=== PATIENT | male | born 1990 | race African-American/Black ===

== ENCOUNTER 2018-02-06 08:33 | Emergency (ER) | payer OTHER ==
[~2018-02-06] VITALS: Ht 167.6 cm; Wt 94.1 kg
[2018-02-06 09:01] VITALS: Ht 167.6 cm; Wt 94.1 kg
[2018-02-06 09:22] LABS: BASOPHILS 0.2 % (0-2); EOSINOPHILS 0.3 % (0-7); HEMATOCRIT 46.3 % (42.0-54.0); HEMOGLOBIN 15.8 g/dL (13.5-17.5); IMMATURE GRANULOCYTES 0.3 % (0-5); LYMPHOCYTES 11.6 % (15-50); MCH 31.9 pg (26.0-34.0); MCHC 34.1 g/dL (31.0-37.0); MCV 93.3 fL (80.0-100.0); MEAN PLATELET VOLUME 11.8 fL (7.4-10.4); MONOCYTES 6.3 % (2-11); NEUTROPHILS 81.3 % (40-80); PLATELET COUNT 209 10x3/uL (130-400); RBC 4.96 10x6/uL (4.20-6.10); RDW 12.9 % (11.5-14.5)
[2018-02-06 09:44] LABS: ALBUMIN 3.7 g/dL (3.4-5.0); ALKALINE PHOSPHATASE 68 U/L (46-116); ALT (SGPT) 29 U/L (10-68); BILIRUBIN - TOTAL 0.85 mg/dL (0.2-1.3); CALC OSMOLALITY 273 mosm/kg (275-300); CALCIUM 10.8 mg/dL (8.5-10.1); CARBON DIOXIDE 26.5 mmol/L (21.0-32.0); CHLORIDE - SERUM 105 mmol/L (98-107); CREATININE - SERUM 1.2 mg/dL (0.6-1.3); GLUCOSE 105 mg/dL (74-106); POTASSIUM - SERUM 4.5 mmol/L (3.5-5.1); PROTEIN - SERUM 6.6 g/dL (6.4-8.2); SODIUM 137 mmol/L (136-145); UREA NITROGEN 13 mg/dL (7-18); eGFR NON AFRICAN AMERICAN 77 mL/min (90-120)
[2018-02-06] MEDS ORDERED: VIBRAMYCIN 100100 MG PO (10:53)
[2018-02-06] MEDS ORDERED: GUAIFENESI100 MG/5 M PO (10:53)
[2018-02-06 11:30] VITALS: BP 122/84
== END 2018-02-06 11:30 | disposition home or self-care (01) ==
LOC: D.ER 08:33
PROVIDERS: Emergency Medicine
DX: J06.9 Acute upper respiratory infection, unspecified (principal); L25.9 Unspecified contact dermatitis, unspecified cause; F17.200 Nicotine dependence, unspecified, uncomplicated

== ENCOUNTER 2018-10-21 05:49 | Day surgery (SDC) | payer OTHER ==
[~2018-10-21 05:49] MED LIST: GUAIFENESI100 MG/5 M PO; VIBRAMYCIN 100100 MG PO
[2018-10-21 05:52] VITALS: BMI 26.7
--- NOTE | 2018-10-21 06:50 | NUR ---
DR DOWNEY HERE- CONSENTS FOR SURGERY SIGNED. PT STATES THE LAST TIME HE ATE WAS AT 2129. 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
[2018-10-21 06:58] LABS: BASOPHILS 0.3 % (0-2); EOSINOPHILS 0.6 % (0-7); HEMATOCRIT 43.9 % (42.0-54.0); HEMOGLOBIN 15.3 g/dL (13.5-17.5); IMMATURE GRANULOCYTES 0.2 % (0-5); LYMPHOCYTES 16.1 % (15-50); MCH 32.4 pg (26.0-34.0); MCHC 34.9 g/dL (31.0-37.0); MONOCYTES 7.6 % (2-11); NEUTROPHILS 75.2 % (40-80); RBC 4.72 10x6/uL (4.20-6.10); RDW 12.4 % (11.5-14.5); WBC 10.7 10x3/uL (4.8-10.8)
[2018-10-21 06:59] LABS: PLATELET COUNT 303 10x3/uL (130-400)
[2018-10-21 07:09] VITALS: BP 144/94
--- NOTE | 2018-10-21 07:20 | NUR ---
PT GIVEN REGLAN 10MG, PEPCID 20 AND ROBINUL 1MG PO FOR PRE-OPS. ANCEF 2 GRAMS IVPB BEGAN. HAS ADAPTIC AND 4X4 IN PLACE TO WOUND. OR HERE TO TAKE PATIENT. BELONGINGS BAGGED AND LABELED. PT'S FAMILY'S NUMBER GIVEN TO OR NURSE.
[2018-10-21 07:28] LABS: BILIRUBIN - TOTAL 0.97 mg/dL (0.2-1.3); CALCIUM 11.8 mg/dL (8.5-10.1); CARBON DIOXIDE 21.5 mmol/L (21.0-32.0); CREATININE - SERUM 1.3 mg/dL (0.6-1.3); POTASSIUM - SERUM 3.5 mmol/L (3.5-5.1); PROTEIN - SERUM 7.1 g/dL (6.4-8.2)
[2018-10-21] MEDS ORDERED: SULFAMETHOXAZOL1 TA3 PO (09:03)
[2018-10-21] MEDS ORDERED: PERCOCET 5-3251 TAB PO (09:03)
[2018-10-21 09:38] VITALS: BP 122/82
[2018-10-21 09:53] VITALS: BP 128/67
--- NOTE | 2018-10-21 09:53 | NUR ---
RECIEVED PT TO ROOM 2204 FROM RECOVERY. PT RESTING WITH EYES CLOSED. EASILY AWAKENS WITH NAME CALLED. RESP EVEN AND UNLABORED. OXYGEN SAT 100%. DRESSING TO LEFT HAND C/D/I. KAMI WRAP IN PLACE. FINGERS WARM TO TOUCH. PT ABLE TO MOVE ALL FINGERS WITH EXCEPTION OF THIRD FINGER. IV TO LEFT HAND WITH LR @ KVO. SITE WITHOUT REDNESS OR EDEMA. PT DENIES PAIN AT THIS TIME. ORIENTED TO CL. CL WITHIN REACH. ENCOURAGED TO CALL WITH NEEDS. CONTINUE TO MONITOR.
[2018-10-21 10:10] VITALS: BP 124/73
--- NOTE | 2018-10-21 10:20 | NUR ---
PT CONTINUES TO REST WITH EYES CLOSED. LEFT HAND PROPPED UP ON PILLOW. RESP EVEN AND UNLABORED. EASILY AWAKENS WITH NAME CALLED. DENIES PAIN AT THIS TIME. LEFT UPPER EXTREMITY REMAINS WARM TO TOUCH CAPILLARY REFILL PRESENT. CL WITHIN REACH. WILL CONTINUE TO MONITOR.
--- NOTE | 2018-10-21 10:50 | NUR ---
PT REQUEST ASSITANCE TO BR. ASSISTED PT TO BR. PT AWAKE ALERT AND ORIENTED. RETURNS TO BED. PT REPORTS READINESS TO GO HOME. PT AWAITING RIDE TO D/C HOME
--- NOTE | 2018-10-21 12:40 | NUR ---
PT GIVEN D/C INSTRUCTIONS WITH PRESCRIPTIONS. EDUCATED PT REGARDING MONITORING FOR INFECTION, KEEPING DRESSING AND WOUND C/D/I. PT VOICES UNDERSTANDING. INSTRUCTED PT TO CONTACT DR. DOWNEY'S OFFICE MONDAY MORNING FOR A FOLLOW UP APPOINTMENT IN ONE WEEK. DISCUSSED PAIN MEDICATION AND DR ORDERS WELL ANTIBIOTIC PRESCRIBED. PT DENIES FURTHER QUESTIONS. IV D/C'D FROM RIGHT HAND CATH INTACT. PT TAKEN OUT TO PRIVATE VEHICLE WITH ALL PERSONAL BELONGINGS.
--- NOTE | 2018-10-22 07:37 | OP ---
PATIENT NAME: UMBERTO BEDOYA MEDICAL RECORD: [id number] :89 LOCATION:D.MS [id number] ADMISSION DATE:10/21/18 SURGEON: HAYLEE DOWNEY DO DATE OF OPERATION: 10/21/2018 PROCEDURES PERFORMED: Left ring finger percutaneous pinning of the middle phalanx with irrigation and debridement, flexor tendon repair, extensor tendon repair, and laceration repair. Laceration was approximately 3 cm. PREOPERATIVE DIAGNOSES: Left ring finger partial amputation, middle phalanx open fracture, flexor tendon laceration partial, and complete extensor tendon laceration. POSTOPERATIVE DIAGNOSES: Left ring finger partial amputation, middle phalanx open fracture, flexor tendon laceration partial, and complete extensor tendon laceration. INDICATIONS: Mr. Bedoya is a 28-year-old male who smashed his left ring finger at the middle phalanx in a trashcan. Apparently, he was at work according to reports. He was brought to the ER and I informed him that the laceration was really about 90% of his finger. Luckily, he had sensation on the radial side of the distal tip but not the ulnar side and did have good cap refill, indicating that the radial digital artery was intact as well as the digital nerve. I informed him that he may lose the finger even if I did do surgery today due to the blood flow, but we will try to save it today and if I got in the OR, that he may still have an amputation. He was okay with those risks as well as risk of immobility, malrotation, nonunion, malunion, and infection. He signed the consent. SURGEON: Haylee Downey DO DESCRIPTION OF PROCEDURE: The patient was taken to the operative suite. He had 2 grams of Ancef preoperatively. A time-out was performed and everyone was agreeance with correct side, site, patient, and procedure. The left hand was then prepped with Betadine and then draped. After the time-out had been performed, we began by irrigating the open fracture of the middle phalanx. The K-wires were then ran from antegrade, from proximal to distal through the distal tip that had been fractured in a crossed-type pattern and then the flexor tendon was seen to be partially lacerated. This was repaired with 4-0 Ethibond in a modified Hernández stitch. This was tied down and then the pinning was done as described. Then, the finger was reduced and the wires were run retrograde into the remainder of the middle phalanx. This was somewhat rotated. The radial-sided pin was removed and a pin was placed through the distal tip of the finger through the distal phalanx. Once I was satisfied with the placement of both the pins and the alignment of the finger, I attempted to repair the extensor tendon; however, it was very frayed at the distal extent and then, after several attempts at this, I got 4-0 nylon and did a horizontal mattress stitch through the distal aspect of the finger through the tendon, then through the proximal portion of the tendon that had been lacerated, and through the skin and tied this in horizontal mattress type. The laceration was then repaired with 4-0 nylon in a horizontal mattress fashion as well as 4-0 Monocryl in a simple and horizontal mattress fashion. The distal tip had good cap refill following the closure and was well aligned. It did not appear to be malrotated. The pins were then bent, cut, and wrapped with Xeroform and 4 x 4s. A splint was placed on the tip and this was covered with bandage. He was awakened and OPERATIVE REPORT [id number] UMBERTO BEDOYA taken to recovery in stable condition. BLOOD LOSS: Approximately 20 mL. COMPLICATIONS: None. TRANSINT:[id number] Voice Confirmation ID: [id number] DOCUMENT ID: [id number] HAYLEE DOWNEY DO at 0737 CC: [id number] DICTATION DATE: 10/21/18920 NURSING AIDE: 10/21/18 1322 DIS IN 10/21/[address] [facility] [address] [id number]
[2019-01-21] MEDS ORDERED: HYDROCODON-ACE1 EAC7 PO (14:57)
[2019-01-30] MEDS ORDERED: HYDROCODON-ACE1 EA10 PO (12:56)
== END 2018-10-21 13:15 | disposition home or self-care (01) ==
LOC: D.ER 05:49 → D.OPS 05:49 → D.MS 09:34 → D.ER 09:34 → EDSTATUS 12:56 → D.MS 13:15 → D.OPS 13:15
PROVIDERS: Family Medicine; ATTEND Orthopaedic Surgery
DX: S68.625A Partial traumatic transphalangeal amputation of left ring finger, initial encounter (principal); S66.323A Laceration of extensor muscle, fascia and tendon of left middle finger at wrist and hand level, initial encounter; S66.125A Laceration of flexor muscle, fascia and tendon of left ring finger at wrist and hand level, initial encounter; X58.XXXA Exposure to other specified factors, initial encounter; F17.210 Nicotine dependence, cigarettes, uncomplicated

== ENCOUNTER 2019-01-16 20:21 | Emergency (ER) | payer OTHER ==
[~2019-01-16] VITALS: Ht 167.6 cm; Wt 81.4 kg
[~2019-01-16 20:21] MED LIST changes: +PERCOCET 5-3251 TAB PO; +SULFAMETHOXAZOL1 TA3 PO
[2019-01-16 20:25] VITALS: Ht 167.6 cm; Wt 81.4 kg
[2019-01-16 21:10] LABS: BASOPHILS 0.2 % (0-2); HEMATOCRIT 43.6 % (42.0-54.0); HEMOGLOBIN 15.4 g/dL (13.5-17.5); IMMATURE GRANULOCYTES 0.2 % (0-5); LYMPHOCYTES 16.4 % (15-50); MCHC 35.3 g/dL (31.0-37.0); MCV 93.4 fL (80.0-100.0); MEAN PLATELET VOLUME 11.1 fL (7.4-10.4); MONOCYTES 9.4 % (2-11); NEUTROPHILS 72.8 % (40-80); PLATELET COUNT 263 10x3/uL (130-400); RBC 4.67 10x6/uL (4.20-6.10); RDW 12.5 % (11.5-14.5); WBC 13.5 10x3/uL (4.8-10.8)
[2019-01-16 21:28] LABS: ALBUMIN 3.5 g/dL (3.4-5.0); BILIRUBIN - TOTAL 0.83 mg/dL (0.2-1.3); CALCIUM 10.6 mg/dL (8.5-10.1); CARBON DIOXIDE 23.9 mmol/L (21.0-32.0); CREATININE - SERUM 1.8 mg/dL (0.6-1.3); POTASSIUM - SERUM 3.9 mmol/L (3.5-5.1); PROTEIN - SERUM 6.1 g/dL (6.4-8.2)
[2019-01-16 21:38] LABS: APPEARANCE CLEAR (CLEAR); BILIRUBIN NEGATIVE (NEGATIVE); COLOR YELLOW (YELLOW); GLUCOSE NEGATIVE (NEGATIVE); KETONE NEGATIVE (NEGATIVE); NITRITE NEGATIVE (NEGATIVE); PROTEIN NEGATIVE (NEGATIVE); SPECIFIC GRAVITY 1.015 (1.005-1.020); UROBILINOGEN NORMAL (NORMAL)
[2019-01-16 21:39] LABS: BACTERIA FEW /hpf (NONE SEEN)
[2019-01-16] MEDS ORDERED: KEFLEX500 MG PO (22:25)
[2019-01-16] MEDS ORDERED: PERCOCET 5-3251 TAB PO (22:25)
[2019-01-16] MEDS ORDERED: FLOMAX0.4 MG PO (22:25)
[2019-01-16 23:11] VITALS: BP 140/77
[2019-01-21] MEDS ORDERED: HYDROCODON-ACE1 EAC7 PO (14:57)
[2019-01-30] MEDS ORDERED: HYDROCODON-ACE1 EA10 PO (12:56)
== END 2019-01-16 23:06 | disposition home or self-care (01) ==
LOC: D.ER 20:21
PROVIDERS: Family Medicine
DX: S62.305A Unspecified fracture of fourth metacarpal bone, left hand, initial encounter for closed fracture (principal); W18.30XA Fall on same level, unspecified, initial encounter; Y93.89 Activity, other specified; Y92.89 Other specified places as the place of occurrence of the external cause; N28.9 Disorder of kidney and ureter, unspecified; N20.1 Calculus of ureter

== ENCOUNTER 2019-01-22 10:55 | Day surgery (SDC) | payer OTHER ==
[~2019-01-22] VITALS: Ht 167.6 cm; Wt 80.3 kg
[~2019-01-22 10:55] MED LIST changes: +FLOMAX0.4 MG PO; +HYDROCODON-ACE1 EAC7 PO; +KEFLEX500 MG PO
[2019-01-22 11:36] VITALS: Ht 167.6 cm; Wt 80.3 kg
[2019-01-22] MEDS ORDERED: DURICEF500 MG PO (15:50)
[2019-01-22] MEDS ORDERED: HYDROCODONE-A1 UDTA2 PO (15:51)
--- NOTE | 2019-01-22 18:19 | NUR ---
1700 MEDICATED FOR PAIN IN HAND AND KIDNEY. PT WILL BE HERE THIS WEEK FOR A STINT, VOIDED URINE DARK. FLUIDS GIVEN. BACK TO BED PT WALKING SLIGHTLY HUNCHED OVER. MILDLY ANXIOUS. STATED HIS MOTHER HAD 3 ATTACKS IN 1 HOUR. GIRLFRIEND AT BEDSIDE. GOOD SUPPORT PERSON. PT WANTING TO GO HOME WHEN HE CAN. INSTRUCTIONS GIVEN AND RX. FALLS TO SLEEP AND EASY TO AWAKEN.
--- NOTE | 2019-01-23 08:48 | OP ---
PATIENT NAME: UMBERTO BEDOYA MEDICAL RECORD: [id number] :89 LOCATION:[facility] ADMISSION DATE: SURGEON: MICAH DOWNEY DO DATE OF OPERATION: 01/22/2019 PROCEDURE PERFORMED: Left fourth metacarpal open reduction internal fixation. PREOPERATIVE DIAGNOSIS: Displaced left fourth metacarpal shaft fracture. POSTOPERATIVE DIAGNOSIS: Displaced left fourth metacarpal shaft fracture. INDICATIONS: Mr. Bedoya is a 28-year-old male who fell and broke his left fourth metacarpal shaft. He tripped and fell over a little rock he said. He had immediate pain, had x-rays taken, and seen to be displaced. The patient was informed that he probably need this fixed because it was shortened and malrotated. He is at risk for shortening and malrotation if he did not get it fixed or if he did get fixed, but better chance if he did. He is aware of the other risks of infection, bleeding, damage to nerves and vessels, need for further surgery. He signed the consent. SURGEON: Micah Downey DO DESCRIPTION OF PROCEDURE: The patient was taken to the operative suite, laid in supine position, given general anesthetic, given 2 grams of Ancef preoperatively. Left upper extremity was prepped and draped in sterile fashion. Time-out was performed, everyone was in agreement as to the correct side, site, patient, and procedure. The left upper extremity was then exsanguinated with Esmarch and tourniquet was inflated to 250 mmHg and was up for approximately 24 minutes. The incision was then marked out over the fracture using x-ray assistance and then an incision was made. Careful dissection was made down to the metacarpal shaft fracture. The fracture was cleaned out and then reduced, held with a jiwwt-hi-focax and then a Medartis plate was put on, 2 proximal screws and 3 distal screws holding the fracture nicely reduced. Once these screws were put in and confirmed in AP and lateral x-ray, the tourniquet was let down. The site was then injected with 10 mL of 0.25% Marcaine with epinephrine. Skin was then closed with 3-0 Vicryl in an inverted interrupted fashion, 5-0 Monocryl ran on the skin. Steri-Strip's were placed over that and placed in an Adaptic, 4 x 4's, and then wrapped with cast padding and then a volar splint was placed on the patient and secured with an Greg wrap. He was awakened and taken to recovery in stable condition. BLOOD LOSS: Minimal. COMPLICATIONS: None. TRANSINT:[id number] Voice Confirmation ID: [id number] DOCUMENT ID: [id number] OPERATIVE REPORT [id number] UMBERTO BEDOYA MICHAEL D, DO at 0848 CC: [id number] DICTATION DATE: 01/22/19 1556 PANTS PRESSER AUTOMATIC: 01/23/[address] [facility] 01/22/19 [facility] [address] [place] [address]
[2019-01-30] MEDS ORDERED: HYDROCODON-ACE1 EA10 PO (12:56)
== END 2019-01-22 18:00 | disposition home or self-care (01) ==
LOC: D.OPS 10:55 → D.PAN 13:15 → D.OPS 18:00
PROVIDERS: ATTEND Orthopaedic Surgery
DX: S62.325A Displaced fracture of shaft of fourth metacarpal bone, left hand, initial encounter for closed fracture (principal); F17.200 Nicotine dependence, unspecified, uncomplicated; W19.XXXA Unspecified fall, initial encounter

== ENCOUNTER 2019-01-24 11:12 | Day surgery (SDC) | payer OTHER ==
[~2019-01-24] VITALS: Ht 167.6 cm; Wt 81.6 kg
[~2019-01-24 11:12] MED LIST changes: +DURICEF500 MG PO; +HYDROCODONE-A1 UDTA2 PO
[2019-01-24] MEDS ORDERED: KEFLEX500 MG PO (11:53)
[2019-01-24 12:03] VITALS: BP 146/89; Ht 167.6 cm; Wt 81.6 kg
--- NOTE | 2019-01-24 17:05 | NUR ---
PATIENT CONTINUES SITTING IN BATHROOM, STATING HAS URGE TO URINATE, STATES "IT FEELS LIKE A UTI." THIS NURSE DISCUSSES WITH PATIENT THAT THE INFLAMMATION FROM THE PROCEDURE CAN CAUSE THAT SENSATION AND SINCE PATIENT HAS URINATED HE PROBABLY DOESN'T TRULY NEED TO URINATE. PATIENT WISHES TO CONTINUE SITTING IN BATHROOM AT THIS TIME
--- NOTE | 2019-01-24 17:30 | NUR ---
PATIENT READY FOR DISCHARGE, RIGHT HAND PIV DC'D WITH TIP INTACT. PATIENT DRESSED IN PERSONAL CLOTHING. DISCHARGED HOME VIA WHEELCHAIR TO PRIVATE VEHICLE WITH GIRLFRIEND/SIGNIFICANT OTHER
--- NOTE | 2019-01-24 17:36 | OP ---
PATIENT NAME: UMBERTO ROCHE MEDICAL RECORD: [id number] :89 LOCATION:D.OPS ADMISSION DATE: SURGEON: HAMILTON CONDON MD DATE OF OPERATION: 01/24/2019 SURGEON: Hamilton Condon MD ANESTHESIA: General anesthesia by Eliane Marie CRNA. DIAGNOSIS: Left ureteral stone, 6 mm; and left renal stone, 5 mm. PROCEDURES: Cystoscopy, left retrograde pyelogram, left ureteral stent insertion 6-Panamanian x 26 cm with string attached. FINDINGS: Stones are difficult to see due to bowel contents overlying the kidney. SPECIMENS: None. ESTIMATED BLOOD LOSS: None. CLINICAL HISTORY: This is a 28-year-old male, who was referred by the Emergency Room for stones in the left renal upper pole and the left proximal ureter. These were seen on the CT scan. There are no stones on the right side. He continues to have significant left-sided flank pain. He comes today to have a left ureteral stent to relieve the obstruction. At a later date, he will have left ESWL to treat the stones. He is not allergic to any medications. He was given Ancef patient account liaison to the OR. DESCRIPTION OF PROCEDURE: The patient was given induction of general anesthesia. He was then placed into the lithotomy position. Under fluoroscopy, I could see a small radiodensity, which I believe was the left upper pole stone. I could not clearly see the left UPJ stone. A 21-Panamanian cystoscope with 30-degree lens was then used for visualization. The prostatic urethra was nonobstructive. There are no bladder tumors seen. There are single ureteral orifices on each side. A 5-Panamanian open-ended ureteral catheter was inserted into the left ureteral orifice. Diluted contrast was injected for a retrograde pyelogram. There was no hydronephrosis of the ureter. There was very mild hydronephrosis of the left kidney. Again, the ureteral stone was not clearly seen. Through the lumen of the ureteral catheter, a Sensor wire was placed into the left renal pelvis. Once the wire was in position, the ureteral catheter was removed entirely. Over the wire, we inserted the 6-Panamanian x 26 cm ureteral stent. Once the stent was in correct position, the wire was withdrawn entirely. The distal end of the stent was pushed into the bladder using the pusher. The bladder was then emptied through the cystoscope sheath and then the scope was removed entirely. The string on the distal end of the stent was maintained. It was tied to itself in a knot and cut shorter. After that, the stones have been entirely removed by lithotripsy. We will remove the stent by pulling on the string. TRANSINT:[id number] Voice Confirmation ID: [id number] DOCUMENT ID: [id number] OPERATIVE REPORT [id number] UMBERTO ROCHE ROBERT S MD at 1736 CC: [id number] DICTATION DATE: 01/24/19 1524 TECHNICAL TRAINING COORDINATOR: 01/24/19 1548 [facility] [address] [place] [address]
[2019-01-30] MEDS ORDERED: HYDROCODON-ACE1 EA10 PO (12:56)
== END 2019-01-24 17:30 | disposition home or self-care (01) ==
LOC: D.OPS 11:12 → D.PAN 12:45 → D.OPS 13:30
PROVIDERS: ATTEND Urology
DX: N20.0 Calculus of kidney (principal)

== ENCOUNTER 2019-01-31 10:08 | Day surgery (SDC) | payer OTHER ==
[~2019-01-31] VITALS: Ht 165.1 cm; Wt 81.6 kg
[~2019-01-31 10:08] MED LIST changes: +HYDROCODON-ACE1 EA10 PO
[2019-01-31 10:32] VITALS: BP 139/89; Ht 165.1 cm; Wt 81.6 kg
--- NOTE | 2019-01-31 14:47 | OP ---
PATIENT NAME: UMBERTO ROCHE MEDICAL RECORD: [id number] :89 LOCATION:[facility] ADMISSION DATE: SURGEON: MAGALY CONDON MD DATE OF OPERATION: 01/31/2019 SURGEON: Magaly Condon MD ANESTHESIA: General anesthesia by Raz Miller CRNA DIAGNOSIS: Left 5-mm renal stone. PROCEDURE: Left ESWL times 1500 shocks. FINDINGS: Radiodense left renal stone adjacent to the proximal stent coil. ESTIMATED BLOOD LOSS: Minimal. CLINICAL HISTORY: This is a 28-year-old male, who was referred from the Emergency Room with left flank pain. At that time, he had a 5-mm left upper pole renal stone and a 6-mm left proximal ureteral stone. He went to the operating room and had cystoscopy and left ureteral stent insertion. He comes today to have left ESWL of the proximal ureteral stone. He is not allergic to any medications. He was given Ancef monitoring tech to the OR. DESCRIPTION OF PROCEDURE: The patient was given induction of general anesthesia. On fluoroscopy, we could not find the ureteral stone. There was a stone adjacent to the proximal coil of the ureteral stent. This might either be the 5-mm stone, which has dropped down adjacent to the stent or the 6 mm stone which was not pushed up against the stent. Nevertheless, we could not find any other stones. The stone was targeted in 2 planes and after 1500 shocks it was found to have disintegrated. The procedure was terminated. The patient was awakened and brought to the recovery room. I will see him in followup in 2 weeks' time with a KUB. If the KUB reveals that there are no further stones, then I will remove the stent. TRANSINT:[id number] Voice Confirmation ID: [id number] DOCUMENT ID: [id number] MAGALY CONDON MD at 1447 CC: [id number] DICTATION DATE: 01/31/19 1327 PROCESS IMPROVEMENT MANAGER: 01/31/19 1342 [facility] [address] [place] [address]
== END 2019-01-31 15:00 | disposition home or self-care (01) ==
LOC: D.OPS 10:08 → D.PAN 10:55 → D.OPS 12:15
PROVIDERS: ATTEND Urology
DX: N20.0 Calculus of kidney (principal)

== ENCOUNTER 2019-02-09 23:07 | Inpatient (IN) | payer OTHER ==
[~2019-02-09] VITALS: Ht 165.1 cm; Wt 71.8 kg
[2019-02-09 23:53] LABS: HEMATOCRIT 42.6 % (42.0-54.0); HEMOGLOBIN 14.7 g/dL (13.5-17.5); MCH 33.4 pg (26.0-34.0); MCHC 34.5 g/dL (31.0-37.0); MCV 96.8 fL (80.0-100.0); MEAN PLATELET VOLUME 11.1 fL (7.4-10.4); PLATELET COUNT 290 10x3/uL (130-400); RDW 12.1 % (11.5-14.5); WBC 29.5 10x3/uL (4.8-10.8)
[2019-02-09 23:56] LABS: APPEARANCE HAZY (CLEAR); BILIRUBIN NEGATIVE (NEGATIVE); COLOR DK YELLOW (YELLOW); GLUCOSE NEGATIVE (NEGATIVE); KETONE NEGATIVE (NEGATIVE); NITRITE POSITIVE (NEGATIVE); PROTEIN TRACE mg/dL (NEGATIVE); SPECIFIC GRAVITY 1.005 (1.005-1.020)
[2019-02-09 23:57] LABS: WHITE CELLS - URINE 25-50 /hpf (NEGATIVE)
[2019-02-09 23:58] LABS: BACTERIA MANY /hpf (NEGATIVE)
[2019-02-10 00:12] LABS: ALBUMIN 3.9 g/dL (3.4-5.0); ALKALINE PHOSPHATASE 122 U/L (46-116); ALT (SGPT) 30 U/L (10-68); BILIRUBIN - TOTAL 0.99 mg/dL (0.2-1.3); CALC OSMOLALITY 273 mosm/kg (275-300); CALCIUM 11.5 mg/dL (8.5-10.1); CARBON DIOXIDE 27.1 mmol/L (21.0-32.0); CHLORIDE - SERUM 102 mmol/L (98-107); CREATININE - SERUM 1.2 mg/dL (0.6-1.3); GLUCOSE 115 mg/dL (74-106); POTASSIUM - SERUM 3.6 mmol/L (3.5-5.1); PROTEIN - SERUM 7.4 g/dL (6.4-8.2); SODIUM 137 mmol/L (136-145); UREA NITROGEN 11 mg/dL (7-18); eGFR NON AFRICAN AMERICAN 76 mL/min (90-120)
[2019-02-10 00:15] LABS: LYMPHOCYTES 3 % (15-50); MONOCYTES 2 % (2-11); NEUTROPHILS 94 % (40-80); PLATELET ESTIMATE NORMAL
--- NOTE | 2019-02-10 01:26 | NUR ---
PT LEFT ED VIA STRETCHER FOR CT.
--- NOTE | 2019-02-10 01:35 | NUR ---
PT RETURNED TO ED VIA STRETCHER.
[2019-02-10 02:25] VITALS: BP 129/77
--- NOTE | 2019-02-10 02:25 | NUR ---
ADMITED TO ROOM ALERT AND ORIENTIATED, REPORTS HAVING PAIN TO LEFT FLANK, HAD STENTS PLACED 2 WEEKS AGO, IV NS AT 100ML /HR INFUSING WITHOUT DIFFICULTY, SEE ASSESSMENT, CALL LIGHT IN REACH, REQUESTING SOMETHING TO EAT, SANDWICH GIVEN, WILL MONITOR PAIN
[2019-02-10 02:52] VITALS: BP 129/77; Ht 165.1 cm; Wt 71.8 kg
[2019-02-10 04:00] VITALS: BP 129/77
--- NOTE | 2019-02-10 08:15 | NUR ---
PATIENT IN BED WITH EYES CLOSED RESTING QUIETLY AT THIS TIME. IV INTACT. NO COMPLAINTS. FAMILY AT BEDSIDE. CALL LIGHT WITHIN REACH.
[2019-02-10 09:06] VITALS: BP 128/76
--- NOTE | 2019-02-10 10:50 | NUR ---
PATIENT UP IN HALLWAYS AMBULATING WITH NO PROBLEMS. IV INTACT. NO COMPLAINTS. CALL LIGHT WITHIN REACH.
[2019-02-10 12:52] VITALS: BP 122/72
--- NOTE | 2019-02-10 14:00 | NUR ---
PAIENT UP AMBULATING IN [place].
--- NOTE | 2019-02-10 17:30 | NUR ---
PATIENT EATING AT THIS TIME WITH NO COMPLAINTS OR PROBLEMS.
--- NOTE | 2019-02-10 18:45 | NUR ---
PATIENT IN BED WITH EYES CLOSED RESTING QUIETLY. IV INTCT. CALL LIGHT WITHIN REACH.
[2019-02-10 20:00] VITALS: BP 132/65
--- NOTE | 2019-02-10 20:00 | NUR ---
WALKING IN HALLWAY WITH FAMILY, REPORTS PAIN AT ABOUT 5, BACK TO ROOM ASSESSMENT COMPLETED, CALL LIGHT IN REACH, MORPHINE GIVEN ORDERED
[2019-02-11] VITALS: BP 122/84
[2019-02-11 06:17] LABS: BASOPHILS 0.1 % (0-2); EOSINOPHILS 0.1 % (0-7); HEMATOCRIT 40.5 % (42.0-54.0); HEMOGLOBIN 13.6 g/dL (13.5-17.5); IMMATURE GRANULOCYTES 0.4 % (0-5); LYMPHOCYTES 6.8 % (15-50); MCH 31.9 pg (26.0-34.0); MCHC 33.6 g/dL (31.0-37.0); MCV 95.1 fL (80.0-100.0); MEAN PLATELET VOLUME 11.8 fL (7.4-10.4); MONOCYTES 10.3 % (2-11); NEUTROPHILS 82.3 % (40-80); PLATELET COUNT 253 10x3/uL (130-400); RBC 4.26 10x6/uL (4.20-6.10); RDW 12.2 % (11.5-14.5)
[2019-02-11 06:39] LABS: ALBUMIN 3.3 g/dL (3.4-5.0); ALKALINE PHOSPHATASE 313 U/L (46-116); BILIRUBIN - TOTAL 3.13 mg/dL (0.2-1.3); CALC OSMOLALITY 278 mosm/kg (275-300); CALCIUM 11.9 mg/dL (8.5-10.1); CARBON DIOXIDE 27.7 mmol/L (21.0-32.0); CHLORIDE - SERUM 105 mmol/L (98-107); CREATININE - SERUM 1.1 mg/dL (0.6-1.3); GLUCOSE 128 mg/dL (74-106); MAGNESIUM - SERUM 1.9 mg/dL (1.8-2.4); PROTEIN - SERUM 6.3 g/dL (6.4-8.2); SODIUM 139 mmol/L (136-145); UREA NITROGEN 9 mg/dL (7-18); eGFR NON AFRICAN AMERICAN 84 mL/min (90-120)
[2019-02-11 06:40] LABS: ALT (SGPT) 1460 U/L (10-68); POTASSIUM - SERUM 4.2 mmol/L (3.5-5.1)
--- NOTE | 2019-02-11 08:00 | NUR ---
ASSESSMENT PER FLOW SHEET. PT IS WITHOUT DISTRESS.FAMILY AT BEDSIDE.CALL LIGHT IN REACH
[2019-02-11 08:29] VITALS: BP 140/74
[2019-02-11 11:00] LABS: INR 1.35 (0.85-1.17); PROTIME 16.1 SECONDS (11.6-15.0)
[2019-02-11 11:10] LABS: ALKALINE PHOSPHATASE 274 U/L (46-116); CALC OSMOLALITY 278 mosm/kg (275-300); CARBON DIOXIDE 27.6 mmol/L (21.0-32.0); CHLORIDE - SERUM 105 mmol/L (98-107); CREATININE - SERUM 1.2 mg/dL (0.6-1.3); GLUCOSE 129 mg/dL (74-106); PROTEIN - SERUM 6.5 g/dL (6.4-8.2); SODIUM 139 mmol/L (136-145); UREA NITROGEN 11 mg/dL (7-18); eGFR NON AFRICAN AMERICAN 76 mL/min (90-120)
[2019-02-11 11:12] LABS: ALT (SGPT) 1184 U/L (10-68); POTASSIUM - SERUM 3.4 mmol/L (3.5-5.1)
--- NOTE | 2019-02-11 12:30 | NUR ---
WILL GIVE MEDS AFTER PT WAKES,PER FAMILY REQUEST.
[2019-02-11 12:51] VITALS: BP 136/61
[2019-02-11 14:20] LABS: UDS - AMPHET POSITIVE QUAL (NEGATIVE); UDS - BARB NEGATIVE QUAL (NEGATIVE); UDS - BENZO NEGATIVE QUAL (NEGATIVE); UDS - COCAINE NEGATIVE QUAL (NEGATIVE); UDS - OPIATE NEGATIVE QUAL (NEGATIVE); UDS - PCP NEGATIVE QUAL (NEGATIVE); UDS - THC POSITIVE QUAL (NEGATIVE)
[2019-02-11 16:42] VITALS: BP 143/77
--- NOTE | 2019-02-11 20:00 | NUR ---
PT WALKING AROUND UNIT, ASKED IF HE WAS LOOKING FOR SOMETHING, PT STATED HE WAS JUST GOING FOR A WALK.
--- NOTE | 2019-02-11 23:50 | NUR ---
PT SEEN ENTERING UNIT. STATES HE LEFT TO PUT BELONGINGS IN VEHICLE AND HAD TO LEAVE TO GIVE GIRLFRIEND A JUMP. JANAK FU NOTIFIED. UDS COLLECTED WITH MALE AID IN ROOM WITNESS. WILL CONTINUE TO MONITOR.
[2019-02-12] VITALS: BP 132/73
[2019-02-12 00:30] LABS: UDS - AMPHET POSITIVE QUAL (NEGATIVE); UDS - BARB NEGATIVE QUAL (NEGATIVE); UDS - BENZO NEGATIVE QUAL (NEGATIVE); UDS - COCAINE NEGATIVE QUAL (NEGATIVE); UDS - OPIATE NEGATIVE QUAL (NEGATIVE); UDS - PCP NEGATIVE QUAL (NEGATIVE); UDS - THC POSITIVE QUAL (NEGATIVE)
[2019-02-12 04:00] VITALS: BP 121/73
[2019-02-12 06:12] LABS: BASOPHILS 0.5 % (0-2); EOSINOPHILS 1.5 % (0-7); HEMATOCRIT 37.3 % (42.0-54.0); HEMOGLOBIN 12.4 g/dL (13.5-17.5); IMMATURE GRANULOCYTES 0.3 % (0-5); LYMPHOCYTES 17.5 % (15-50); MCH 31.6 pg (26.0-34.0); MCHC 33.2 g/dL (31.0-37.0); MCV 95.2 fL (80.0-100.0); MEAN PLATELET VOLUME 11.9 fL (7.4-10.4); MONOCYTES 16.6 % (2-11); NEUTROPHILS 63.6 % (40-80); PLATELET COUNT 250 10x3/uL (130-400); RBC 3.92 10x6/uL (4.20-6.10); RDW 12.3 % (11.5-14.5)
[2019-02-12 06:20] LABS: WBC 7.8 10x3/uL (4.8-10.8)
[2019-02-12 06:39] LABS: ALBUMIN 2.9 g/dL (3.4-5.0); ALKALINE PHOSPHATASE 255 U/L (46-116); CALC OSMOLALITY 284 mosm/kg (275-300); CARBON DIOXIDE 27.5 mmol/L (21.0-32.0); CHLORIDE - SERUM 109 mmol/L (98-107); GLUCOSE 98 mg/dL (74-106); MAGNESIUM - SERUM 1.9 mg/dL (1.8-2.4); PROTEIN - SERUM 5.8 g/dL (6.4-8.2); SODIUM 143 mmol/L (136-145); UREA NITROGEN 13 mg/dL (7-18); eGFR NON AFRICAN AMERICAN > 90 mL/min (90-120)
[2019-02-12 06:57] LABS: ALT (SGPT) 796 U/L (10-68); POTASSIUM - SERUM 4.1 mmol/L (3.5-5.1)
[2019-02-12 06:59] LABS: CALCIUM 12.4 mg/dL (8.5-10.1)
[2019-02-12 08:10] LABS: HEPATITIS C ANTIBODY <0.1 S/CO RAT (0.0-0.9)
[2019-02-12 08:47] VITALS: BP 135/95
[2019-02-12 12:36] VITALS: BP 145/88
[2019-02-12] MEDS ORDERED: Nicoderm [PBKC] TRANSDERM ×2 (12:42→12:44)
[2019-02-12] MEDS ORDERED: HYDROCODON-ACE1 EAC7 PO (14:43)
[2019-02-12] MEDS ORDERED: LEVOFLOXACIN500 MG PO (14:44)
--- NOTE | 2019-02-12 15:58 | NUR ---
DISCHARGE INSTRUCTIONS,STATES UNDERSTANDING. PT TO LEAVE UNIT WITH FAMILY.DECLINES WHEELCHAIR
== END 2019-02-12 16:16 | disposition home or self-care (01) | DRG 698 ==
LOC: D.ER 23:07 → D.MS 02-10 01:19
PROVIDERS: Family Medicine; ADMIT Internal Medicine Nephrology; ATTEND Internal Medicine Nephrology
DX: T83.592A Infection and inflammatory reaction due to indwelling ureteral stent, initial encounter (principal); A41.9 Sepsis, unspecified organism; N12 Tubulo-interstitial nephritis, not specified as acute or chronic; E83.59 Other disorders of calcium metabolism; N29 Other disorders of kidney and ureter in diseases classified elsewhere; D64.9 Anemia, unspecified; F12.929 Cannabis use, unspecified with intoxication, unspecified; F15.99 Other stimulant use, unspecified with unspecified stimulant-induced disorder; Z96.0 Presence of urogenital implants

== ENCOUNTER 2019-09-12 20:42 | Emergency (ER) | payer OTHER ==
[~2019-09-12] VITALS: Ht 165.1 cm; Wt 81.6 kg
[~2019-09-12 20:42] MED LIST changes: +LEVOFLOXACIN500 MG PO; +Nicoderm [PBKC] TRANSDERM
[2019-09-12 21:28] LABS: BASOPHILS 0.4 % (0-2); EOSINOPHILS 1.2 % (0-7); HEMATOCRIT 46.7 % (42.0-54.0); HEMOGLOBIN 15.1 g/dL (13.5-17.5); IMMATURE GRANULOCYTES 0.3 % (0-5); LYMPHOCYTES 20.7 % (15-50); MCH 31.5 pg (26.0-34.0); MCHC 32.3 g/dL (31.0-37.0); MCV 97.5 fL (80.0-100.0); MEAN PLATELET VOLUME 10.9 fL (7.4-10.4); MONOCYTES 10.4 % (2-11); PLATELET COUNT 281 10x3/uL (130-400); RBC 4.79 10x6/uL (4.20-6.10); RDW 12.4 % (11.5-14.5); WBC 10.1 10x3/uL (4.8-10.8)
[2019-09-12 21:35] VITALS: Ht 165.1 cm; Wt 81.6 kg
[2019-09-12 21:51] LABS: BILIRUBIN NEGATIVE (NEGATIVE); GLUCOSE NEGATIVE (NEGATIVE); KETONE NEGATIVE (NEGATIVE); NITRITE NEGATIVE (NEGATIVE); UROBILINOGEN NORMAL (NORMAL)
[2019-09-12 21:52] LABS: AMORPHOUS SEDIMENT <1+ /lpf (NONE SEEN); BACTERIA FEW /hpf (NEGATIVE); EPITHELIAL CELLS 0-5 /hpf (0-5)
[2019-09-12 21:53] LABS: ALBUMIN 3.9 g/dL (3.4-5.0); ANION GAP 10.6 mmol/L (8-16); BILIRUBIN - TOTAL 0.59 mg/dL (0.2-1.3); CARBON DIOXIDE 29.3 mmol/L (21.0-32.0); CREATININE - SERUM 1.4 mg/dL (0.6-1.3); POTASSIUM - SERUM 3.9 mmol/L (3.5-5.1); PROTEIN - SERUM 7.1 g/dL (6.4-8.2)
[2019-09-12] MEDS ORDERED: ZOFRAN ODT4 MG/UDTAB PO (22:25)
[2019-09-12] MEDS ORDERED: LEVOFLOXACIN500 MG PO (22:55)
[2019-09-12] MEDS ORDERED: FLAGYL500 MG PO (22:55)
[2019-09-12 23:34] VITALS: BP 132/82
== END 2019-09-12 23:34 | disposition home or self-care (01) ==
LOC: D.ER 20:42
PROVIDERS: Family Medicine
DX: R10.9 Unspecified abdominal pain (principal); Z87.442 Personal history of urinary calculi; N39.0 Urinary tract infection, site not specified

== ENCOUNTER → 2019-10-10 13:18 | Outpatient (CLI) | payer OTHER ==
[2019-09-12 21:35] VITALS: BMI 26.3
[~2019-10-10 13:18] MED LIST changes: +FLAGYL500 MG PO; +ZOFRAN ODT4 MG/UDTAB PO
== END | disposition home or self-care (01) ==
LOC: D.CT 13:18
PROVIDERS: ATTEND Clinical Nurse Specialist Family Health
DX: M79.642 Pain in left hand (principal)

== ENCOUNTER 2019-11-16 08:18 | Emergency (ER) | payer OTHER ==
[~2019-11-16] VITALS: Ht 165.1 cm; Wt 88.6 kg
[2019-11-16 08:26] VITALS: Ht 165.1 cm; Wt 88.6 kg
[2019-11-16] MEDS ORDERED: EC-NAPROSYN500 MG PO (09:21)
[2019-11-16] MEDS ORDERED: ULTRAM50 MG PO (09:21)
[2019-11-16 09:37] VITALS: BP 134/89
== END 2019-11-16 09:37 | disposition home or self-care (01) ==
LOC: D.ER 08:18
DX: M77.52 Other enthesopathy of left foot and ankle (principal); G35 Multiple sclerosis; M25.572 Pain in left ankle and joints of left foot

== ENCOUNTER 2019-11-17 10:21 | Emergency (ER) | payer OTHER ==
[~2019-11-17] VITALS: Ht 165.1 cm; Wt 90.9 kg
[~2019-11-17 10:21] MED LIST changes: +EC-NAPROSYN500 MG PO; +ULTRAM50 MG PO
[2019-11-17 10:29] VITALS: Ht 165.1 cm; Wt 90.9 kg
[2019-11-17 13:30] VITALS: BP 154/86
== END 2019-11-17 13:31 | disposition home or self-care (01) ==
LOC: D.ER 10:21
DX: S00.91XA Abrasion of unspecified part of head, initial encounter (principal); W19.XXXA Unspecified fall, initial encounter; Y93.9 Activity, unspecified; Y92.9 Unspecified place or not applicable; R51 Headache; G35 Multiple sclerosis